=== PATIENT | female | born 1985 | race Caucasian/White ===

== ENCOUNTER 2017-04-03 15:47 | Emergency (ER) | payer SELFPAY ==
[~2017-04-03] VITALS: Ht 162.6 cm; Wt 62.0 kg
[2017-04-03 15:49] VITALS: BP 130/81; PULSE 128; RESP 18; TEMP 98.5; O2SAT 100
[2017-04-03] MEDS ORDERED: XANA1TAB2 PO (17:05)
[2017-04-03] MEDS ORDERED: TOPA50TA7 PO (17:05)
--- NOTE | 2017-04-03 17:05 | PD ---
HPI Chief Complaint: GI Complaint Time Seen by Provider: 16:58 Travel History International Travel<30 days: No Contact w/Intl Traveler<30days: No Traveled to known affect area: No History of Present Illness HPI Patient is a 31 year old female who presents to the ER with c/o of benzodiazepine withdrawal. Patient reports that she has history of social anxiety, reports that she normally takes xanax 1mg TID. Patient reports that she does not like her primary care doctor and missed her last appointment with him as he is bras and gives her more anxiety to go to the appointment. Reports that she also does not have insurance and can't afford to see her primary care doctor. Patient reports that she made an appointment with her psychiatrist who is willing to see her on April 15. Patient requests that she be started on a lower dose of Klonopin as eventually, she would like to stop taking benzodiazepines. Patient reports that she last took any Xanax 2 days ago, reports that she has been feeling withdrawal symptoms. She reports that she has been feeling nauseous and has been vomiting. Patient denies any fever or chills, denies any chest pain or shortness of breath. Patient denies any abdominal pain at this time. Patient denies suicidal or homicidal thoughts. Patient reports that she is only here for medication refill until she can be seen by her psychiatrist [facility] Past Medical History Anxiety: Yes LMP: 03/18/17 Past Surgical History Surgical History: No Previous Surgery Social History Alcohol Use: No Tobacco Use: No Substance Use: No Allergies-Medications (Allergen,Severity, Reaction): Coded Allergies: No Known Allergies (Unverified , 04/03/17) Reported Meds & Prescriptions Reported Meds & Active Scripts Active Klonopin (Clonazepam) 0.5 Mg Tab 0.5 Mg PO BID Reported Xanax (Alprazolam) 1 Mg Tab 1 Mg PO TID PRN Topamax (Topiramate) 50 Mg Tab 50 Mg PO BID Review of Systems General / Constitutional: No: Fever Eyes: No: Visual changes HENT: No: Headaches Cardiovascular: No: Chest Pain or Discomfort Respiratory: No: Shortness of Breath Gastrointestinal: No: Abdominal Pain Genitourinary: No: Dysuria Musculoskeletal: No: Pain Skin: No Rash Neurologic: No: Weakness Psychiatric: Positive: Anxiety, No: Depression, Suicidal Ideations, Substance Abuse, Homicidal Ideation Endocrine: No: Polydipsia Hematologic/Lymphatic: No: Easy Bruising Physical Exam Narrative GENERAL: mild distress SKIN: Focused skin assessment warm/dry. HEAD: Atraumatic. Normocephalic. EYES: Pupils equal and round. No scleral icterus. No injection or drainage. ENT: No nasal bleeding or discharge. Mucous membranes pink and moist. NECK: Trachea midline. No JVD. CARDIOVASCULAR: Tachycardia. No murmur appreciated. RESPIRATORY: No accessory muscle use. Clear to auscultation. Breath sounds equal bilaterally. GASTROINTESTINAL: Abdomen soft, non-tender, nondistended. Hepatic and splenic margins not palpable. MUSCULOSKELETAL: No obvious deformities. No clubbing. No cyanosis. No edema. NEUROLOGICAL: Awake and alert. No obvious cranial nerve deficits. Motor grossly within normal limits. Normal speech. PSYCHIATRIC: Anxious mood and affect; insight and judgment normal. Data Data Last Documented VS Vital Signs Date Time Temp Pulse Resp B/P (MAP) Pulse Ox O2 Delivery O2 Flow Rate FiO2 04/03/17 18:18 84 20 113/76 (88) 100 Room Air 04/03/17 15:49 98.5 Orders Orders Clonazepam (Klonopin) (04/03/17 17:15) Ed Urine Pregnancytest Poc (04/03/17 17:41) MDM Medical Decision Making Medical Screen Exam Complete: Yes Emergency Medical Condition: Yes Medical Record Reviewed: Yes Interpretation(s) Vital Signs Date Time Temp Pulse Resp B/P (MAP) Pulse Ox O2 Delivery O2 Flow Rate FiO2 04/03/17 15:49 98.5 128 18 130/81 (97) 100 Room Air Differential Diagnosis Benzodiazepine withdrawal, anxiety reaction, gastroenteritis, gastritis Narrative Course 31-year-old female presents to emergency room with complaints of benzodiazepine withdrawal. She requesting medication change and we felt at this time. She does not want to see psychiatric screeners as she denies si/hi. She does have an appointment with her psychiatrist on April 15 for further refills on her medications. Overall, patient is tachycardic on exam. Abdomen is soft, nontender, nondistended, no peritoneal signs. Overall, patient is well- appearing. Plan to give a dose of benzodiazepines at this time, will provide a low dose of klonapin and have her follow up with her psychiatrist as scheduled. Patient re-evaluated, patient feeling much better at this time. VSS. Patient tolerated an oral trial while in the emergency room. She will follow up with her psychiatrist for further scripts for refills for benzodiazepine. She will return to the emergency room as needed. Diagnosis Primary Impression: Anxiety reaction Additional Impression: Benzodiazepine withdrawal Patient Instructions: General Instructions Additional Instructions: Please follow up with your primary care doctor as well as your psychiatrist as soon as possible Return to the ER if symptoms worsen or progress Return to the ER as needed Med/Other Pt SpecificInfo: Prescription(s) given Scripts Clonazepam (Klonopin) 0.5 Mg Tab 0.5 MG PO BID, #14 TAB 0 Refills Prov: Teodora Badillo DO 04/03/17 Disposition: 01 DISCHARGE HOME Condition: Stable Teodora Badillo DO Apr 03, 2017 17:05
[2017-04-03] MEDS ORDERED: clonazePAM 1 MG TAB PO ONE (17:15)
[2017-04-03] MEDS ORDERED: CLON.5 PO ×2 (17:16→19:05)
[2017-04-03 18:18] VITALS: BP 113/76; PULSE 84; RESP 20; O2SAT 100
== END 2017-04-03 19:35 | disposition home or self-care (01) ==
LOC: NEPD 15:47
DX: F41.1 Generalized anxiety disorder (principal); F19.939 Other psychoactive substance use, unspecified with withdrawal, unspecified; R00.0 Tachycardia, unspecified; Z76.0 Encounter for issue of repeat prescription
CPT/HCPCS: 84703; 99283